=== PATIENT | female | born 1980 | race Hispanic/Latino ===

== ENCOUNTER 2020-10-04 07:25 | Emergency (ER) | payer BC ==
[2020-10-04 08:22] LABS: BHCG - Serum Negative (NEGATIVE); Pregs Control Background? CLEAR/WHITE (CLR/WHITE); Pregs Control Bar Appear? YES (CONTROL BAR)
[2020-10-04 08:30] LABS: #Eosinphils 0.1 thou/uL (0.0-0.7); #Lymphocytes 1.5 thou/uL (1.20-3.40); #Monocytes 0.2 thou/uL (0.11-0.59); #Neutrophils 4.2 thou/uL (1.40-6.50); %Basophils 0.8 % (0.0-1.0); %Eosinophils 1.1 % (0.0-10.0); %Lymphocytes 25.2 % (21.0-51.0); %Monocytes 3.8 % (0.0-10.0); %Neutrophils 69.1 % (42.0-75.0); Hemoglobin 13.7 g/dL (12.0-16.0); Mean Corpuscular HGB CONC 32.1 g/dL (32.0-36.0); Mean Corpuscular Hemoglobin 28.4 pg (27.0-31.0); Mean Corpuscular Volume 88.5 fL (78.0-98.0); Mean Platelet Volume 10.6 fL (7.4-10.4); Platelet Count 197 thou/uL (130-400); RBC Distribution Width 11.7 % (11.5-14.5); Red Blood Cell (RBC) Count 4.82 mill/uL (4.20-5.40); White Blood Cell (WBC) Count 6.1 thou/uL (4.8-10.8)
[2020-10-04 08:33] LABS: ALT (SGPT) 14 U/L (8-55); AST (SGOT) 19 U/L (5-34); Alkaline Phosphatase 71 U/L (40-110); Anion Gap 14 mmol/L (10-20); BUN (Urea Nitrogen) 10 mg/dL (7.0-18.7); Bilirubin, Total 0.4 mg/dL (0.2-1.2); Calc. Creatinine Clearance 0 mL/min (70-130); Calcium 8.5 mg/dL (7.8-10.44); Carbon Dioxide 19 mmol/L (22-29); Chloride 110 mmol/L (98-107); Glucose 106 mg/dL (70-105); Potassium 3.9 mmol/L (3.5-5.1); Sodium 139 mmol/L (136-145)
[2020-10-04] MEDS ORDERED: Ketorolac Tromethamine 30 MG/ML VIAL ONE (09:11)
[2020-10-04] MEDS ORDERED: Iopamidol-370 76% 500 ML 1 ML ONE (14:17)
== END 2020-10-04 11:40 | disposition home or self-care (01) ==
LOC: ERS 07:25
DX: R07.9 Chest pain, unspecified (principal); R51.9 Headache, unspecified; R20.0 Anesthesia of skin
CPT/HCPCS: 36415; 71045; 71275; 74174; 80053; 83690; 84484; 84703; 85025; 93005; 96374; J1885; Q9967